=== PATIENT | male | born 1990 | race American Indian/Alaskan Native ===

== ENCOUNTER 2018-10-28 00:16 | Emergency (ER) | payer BC, OTHER ==
[2018-10-28 00:16] VITALS: BMI 23.6
[2018-10-28 00:28] VITALS: RESP 18
[2018-10-28 00:52] LABS: BASO # 0.03 K/mm3 (0.0-2.0); BASO % 0.3 % (0.0-3.0); EOS # 0.1 (0.0-0.7); EOS % 0.8 % (1.5-5.0); GRAN # 5.81 (1.4-6.5); GRAN % 51.9 % (50.0-68.0); HEMOGLOBIN 13.9 g/dL (14.0-18.0); LYMPH # 4.4 (1.2-3.4); LYMPH % 39.4 % (22.0-35.0); MEAN CELL VOLUME 92.1 fl (80.0-105.0); MEAN CORPUSCULAR HEMOGLOBIN 30.5 pg (25.0-35.0); MEAN CORPUSCULAR HGB CONC 33.2 g/dl (31.0-37.0); MEAN PLATELET VOLUME 10.8 fl (7.0-11.0); MONO # 0.9 (0.1-0.6); MONO % 7.6 % (1.0-6.0); RBC 4.55 10^6/uL (3.5-6.1); RED CELL DISTRIBUTION WIDTH 12.3 % (11.5-14.5); WHITE BLOOD COUNT 11.2 10^3/uL (4.5-11.0)
[2018-10-28 01:02] LABS: ALB/GLOB RATIO 1.4 (1.1-1.8); ALBUMIN 4.5 g/dL (3.0-4.8); ALT/SGPT 47 U/L (7-56); AST/SGOT 31 U/L (17-59); BLOOD UREA NITROGEN 26 mg/dL (7-21); CALCIUM 9.5 mg/dL (8.4-10.5); GFR NON-AFRICAN AMERICAN > 60
[2018-10-28 01:09] LABS: URINE BILIRUBIN NEGATIVE (NEGATIVE); URINE BLOOD TRACE-INTACT (NEGATIVE); URINE GLUCOSE (UA) NEGATIVE (NEGATIVE); URINE LEUKOCYTE ESTERASE NEGATIVE Leu/uL (NEGATIVE); URINE PROTEIN NEGATIVE mg/dL (<30 mg/dL); URINE UROBILINOGEN 0.2 E.U./dL (<1 E.U./dL)
[2018-10-28 01:12] LABS: ACETAMINOPHEN < 10.0 ug/ml (10.0-20.0); SALICYLATE < 1 mg/dL (2.0-20.0)
[2018-10-28 01:13] LABS: TROPONIN I < 0.01 ng/mL
[2018-10-28 01:16] VITALS: TEMP 98.1
[2018-10-28 01:18] LABS: URINE APPEARANCE CLEAR (CLEAR); URINE COLOR YELLOW (YELLOW)
[2018-10-28 01:24] LABS: URINE EPITHELIAL CELLS 0 - 2 /hpf (0-5); URINE RBC 0 - 2 /hpf (0-2); URINE WBC 0 - 2 /hpf (0-6)
--- NOTE | 2018-10-28 01:26 | ED PDOC ---
Arrival/HPI - General Historian: Patient - History of Present Illness Narrative History of Present Illness (Text): 10/28/18 01:21 28-year-old male with no past medical history presents today with a one-week history of intermittent chest pain. Patient describes a pinprick type sensation intermittently occurring to the chest mostly on the left side. He denies associated shortness of breath. Patient states he has been having occasional dizziness. He denies nausea vomiting diarrhea or constipation. No abdominal pain. He denies fevers or chills or URI symptoms. Patient is requesting to have a drug screen because he is not sure if someone is drugging him or if the voices that he is hearing in his head are real. He states the voices are not telling him to hurt himself. He denies suicidal or homicidal ideations. Patient denies back pain. Patient denies urinary symptoms. Time/Duration: 1 week Symptom Course: Intermittent Severity Level: Mild <Suzanne Burch - Last Filed: 10/28/18 01:53> <Blade Hill - Last Filed: 10/28/18 02:14> - General Chief Complaint: Chest Pain Time Seen by Provider: 10/28/18 00:17 Past Medical History - Provider Review Nursing Documentation Reviewed: Yes - Psychiatric Hx Substance Use: No <Suzanne Burch - Last Filed: 10/28/18 01:53> Family/Social History - Physician Review Nursing Documentation Reviewed: Yes Family/Social History: Unknown Family HX Smoking Status: Never Smoked Hx Alcohol Use: Yes Frequency of alcohol use: Socially Hx Substance Use: No <Suzanne Burch - Last Filed: 10/28/18 01:53> Allergies/Home Meds <Suzanne Burch - Last Filed: 10/28/18 01:53> <Blade Hill - Last Filed: 10/28/18 02:14> Allergies/Adverse Reactions: Allergies No Known Allergies Allergy (Verified 09/26/15 00:51) Home Medications: Home Meds Medication Instructions Recorded Confirmed No Known Home Med 09/26/15 10/28/18 Review of Systems - Review of Systems Constitutional: absent: Fatigue, Fevers ENT: absent: Sore Throat, Sinus Congestion Respiratory: absent: SOB, Cough Cardiovascular: Chest Pain. absent: Palpitations, Orthopnea Gastrointestinal: absent: Abdominal Pain, Constipation, Diarrhea, Nausea, Vomiting Genitourinary Male: absent: Dysuria, Frequency, Hematuria Musculoskeletal: absent: Arthralgias, Back Pain, Neck Pain Skin: absent: Rash, Pruritis Neurological: Dizziness. absent: Headache Psychiatric: Other (hearing voices). absent: Anxiety, Depression, Suicidal Ideation <MarcinSuzanne T - Last Filed: 10/28/18 01:53> Physical Exam Vital Signs Reviewed: Yes Vital Signs Temp Pulse Resp BP Pulse Ox 10/28/18 00:27 98.1 F 75 18 123/54 L 97 Temperature: Afebrile Blood Pressure: Normal Pulse: Regular Respiratory Rate: Normal Appearance: Positive for: Well-Appearing, Non-Toxic, Comfortable Pain Distress: None Mental Status: Positive for: Alert and Oriented X 3 - Systems Exam Head: Present: Atraumatic Pupils: Present: PERRL Extroacular Muscles: Present: EOMI Conjunctiva: Present: Normal Mouth: Present: Moist Mucous Membranes Pharnyx: Present: Normal Neck: Present: Normal Range of Motion Respiratory/Chest: Present: Clear to Auscultation, Good Air Exchange. No: Respiratory Distress, Accessory Muscle Use, Tender to Palpation Cardiovascular: Present: Regular Rate and Rhythm, Normal S1, S2. No: Murmurs, Tachycardic Abdomen: No: Tenderness, Distention, Rebound, Guarding Back: Present: Normal Inspection Upper Extremity: Present: Normal ROM Lower Extremity: Present: Normal ROM. No: CALF TENDERNESS Neurological: Present: GCS=15, Speech Normal Skin: Present: Warm, Dry, Normal Color. No: Rashes Psychiatric: Present: Alert, Oriented x 3 <Suzanne Burch - Last Filed: 10/28/18 01:53> Vital Signs Temp Pulse Resp BP Pulse Ox 10/28/18 00:27 98.1 F 75 18 123/54 L 97 <Blade Hill - Last Filed: 10/28/18 02:14> Medical Decision Making ED Course and Treatment: 10/28/18 01:24 Pt with 1 week of intermittent cp. Patient is nontoxic well-appearing in no distress vital signs are stable. cbc; wnl cmp; bun; 26 cr. 1.3 glucose; 64 pt given oj and apple sauce. trop: 0.01 dimer: <200 ekg; rhythm at 77 bpm normal axis normal intervals no ST elevations cxr: wnl Tylenol WNL Salicylate WNL Alcohol level WNL Urine drug screen wnl UA; wnl pt is medically cleared for PES evaluation Patient was seen and evaluated by PES screener: isabel Patient is cleared psychiatrically for discharge. all results discussed with patient in depth; advised f/u with pmd/[facility] and mental health center. Patient was advised to me to return if symptoms worsen persist or if new concerning symptoms develop Patient verbalizes understanding of discharge instructions and need for immediate followup. All aspects of this case were discussed the attending of record. Impression; chest pain follow up with the primary care physician within the next 2 days. follow up with the small wind energy installer within the next 2 days follow up with the mental health center within the next 2 days return immediately if symptoms worsen,persist or if new symptoms develop. Reassessment Condition: Re-examined, Improved - Lab Interpretations Lab Results: Troponin I < 0.01 ng/mL 10/28/18 00:32 Total Bilirubin 0.5 mg/dL (0.2-1.3) 10/28/18 00:32 AST 31 U/L (17-59) 10/28/18 00:32 ALT 47 U/L (7-56) 10/28/18 00:32 Alkaline Phosphatase 63 U/L (38-126) 10/28/18 00:32 Total Protein 7.9 g/dL (5.8-8.3) 10/28/18 00:32 Albumin 4.5 g/dL (3.0-4.8) 10/28/18 00:32 Globulin 3.3 gm/dL 10/28/18 00:32 Albumin/Globulin Ratio 1.4 (1.1-1.8) 10/28/18 00:32 Urine Color Yellow (YELLOW) 10/28/18 00:57 Urine Appearance Clear (CLEAR) 10/28/18 00:57 Urine pH 6.0 (4.7-8.0) 10/28/18 00:57 Ur Specific Lorraine 1.015 (1.005-1.035) 10/28/18 00:57 Urine Protein Negative mg/dL (<30 mg/dL) 10/28/18 00:57 Urine Glucose (UA) Negative mg/dL (NEGATIVE) 10/28/18 00:57 Urine Ketones Negative mg/dL (NEGATIVE) 10/28/18 00:57 Urine Blood Trace-intact (NEGATIVE) H 10/28/18 00:57 Urine Nitrate Negative (NEGATIVE) 10/28/18 00:57 Urine Bilirubin Negative (NEGATIVE) 10/28/18 00:57 Urine Urobilinogen 0.2 E.U./dL (<1 E.U./dL) 10/28/18 00:57 Ur Leukocyte Esterase Negative Deyvi/uL (NEGATIVE) 10/28/18 00:57 - RAD Interpretation Radiology Orders: 10/28/18 00:40 CHEST PORTABLE [RAD] Stat <Azoia,Suzanne T - Last Filed: 10/28/18 01:53> - Lab Interpretations Lab Results: D-Dimer, Quantitative < 200 ng/mlDDU (0-243) 10/28/18 00:32 Troponin I < 0.01 ng/mL 10/28/18 00:32 Total Bilirubin 0.5 mg/dL (0.2-1.3) 10/28/18 00:32 AST 31 U/L (17-59) 10/28/18 00:32 ALT 47 U/L (7-56) 10/28/18 00:32 Alkaline Phosphatase 63 U/L (38-126) 10/28/18 00:32 Total Protein 7.9 g/dL (5.8-8.3) 10/28/18 00:32 Albumin 4.5 g/dL (3.0-4.8) 10/28/18 00:32 Globulin 3.3 gm/dL 10/28/18 00:32 Albumin/Globulin Ratio 1.4 (1.1-1.8) 10/28/18 00:32 Urine Color Yellow (YELLOW) 10/28/18 00:57 Urine Appearance Clear (CLEAR) 10/28/18 00:57 Urine pH 6.0 (4.7-8.0) 10/28/18 00:57 Ur Specific Lorraine 1.015 (1.005-1.035) 10/28/18 00:57 Urine Protein Negative mg/dL (<30 mg/dL) 10/28/18 00:57 Urine Glucose (UA) Negative mg/dL (NEGATIVE) 10/28/18 00:57 Urine Ketones Negative mg/dL (NEGATIVE) 10/28/18 00:57 Urine Blood Trace-intact (NEGATIVE) H 10/28/18 00:57 Urine Nitrate Negative (NEGATIVE) 10/28/18 00:57 Urine Bilirubin Negative (NEGATIVE) 10/28/18 00:57 Urine Urobilinogen 0.2 E.U./dL (<1 E.U./dL) 10/28/18 00:57 Ur Leukocyte Esterase Negative Deyvi/uL (NEGATIVE) 10/28/18 00:57 Urine RBC 0 - 2 /hpf (0-2) 10/28/18 00:57 Urine WBC 0 - 2 /hpf (0-6) 10/28/18 00:57 Ur Epithelial Cells 0 - 2 /hpf (0-5) 10/28/18 00:57 Urine Bacteria None /hpf (NONE) 10/28/18 00:57 - RAD Interpretation Radiology Orders: 10/28/18 00:40 CHEST PORTABLE [RAD] Stat <Blade Hill - Last Filed: 10/28/18 02:14> - PA / TELEGRAPH REPEATER INSTALLER / Resident Statement / has reviewed & agrees with the documentation as recorded. <Blade Hill - Last Filed: 10/28/18 02:14> Disposition/Present on Arrival - Present on Arrival Any Indicators Present on Arrival: No History of DVT/PE: No History of Uncontrolled Diabetes: No Urinary Catheter: No History of Decub. Ulcer: No History Surgical Site Infection Following: None - Disposition Have Diagnosis and Disposition been Completed?: Yes Disposition Time: 01:26 Patient Plan: Discharge <Suzanne Burch - Last Filed: 10/28/18 01:53> <Blade Hill - Last Filed: 10/28/18 02:14> - Disposition Diagnosis: Chest pain Disposition: HOME/ ROUTINE Patient Problems: Current Active Problems Problem Status Onset Chest pain Acute Condition: GOOD Discharge Instructions (ExitCare): Chest Pain (ED) Additional Instructions: Follow up with the primary care physician within the next 2 days. follow up with the small wind energy installer within the next 2 days follow up with the mental health center within the next 2 days return immediately if symptoms worsen,persist or if new symptoms develop. Referrals: Corry Vaughan MD [Medical Doctor] - Follow up with primary [facility] [Outside] - Follow up with primary [facility] [Outside] - Follow up with primary Tong Friend MD [Staff Provider] - Follow up with primary Romeo Marquez MD [Staff Provider] - Follow up with primary Forms: [employer] (K[place]itian), WORK NOTE
[2018-10-28 01:46] LABS: BARBITURATES, UR NEGATIVE (NEGATIVE); BENZODIAZEPINES, UR NEGATIVE (NEGATIVE); OPIATES, UR NEGATIVE (NEGATIVE); PHENCYCLIDINE, UR NEGATIVE (NEGATIVE)
[2018-10-28 02:18] VITALS: BP 148/68; PULSE 79; O2SAT 99
--- NOTE | 2018-10-28 08:05 | RAD ---
Date of service: 10/28/2018 HISTORY: cp COMPARISON: 09/26/2015 FINDINGS: LUNGS: No active pulmonary disease. PLEURA: No significant pleural effusion identified, no pneumothorax apparent. CARDIOVASCULAR: No aortic atherosclerotic calcification present. Normal cardiac size. No pulmonary vascular congestion. OSSEOUS STRUCTURES: No significant abnormalities. VISUALIZED UPPER ABDOMEN: Normal. OTHER FINDINGS: None. IMPRESSION: No active disease.
--- NOTE | 2018-10-28 20:27 | CARD ---
APPROVED REPORT Date of service: 10/28/2018 EKG Measurement Heart [id number] <Conclusion> Normal sinus rhythm Normal ECG
== END 2018-10-28 02:13 | disposition home or self-care (01) ==
LOC: ED 00:16
DX: R07.9 Chest pain, unspecified (principal)
CPT/HCPCS: 71045; 80053; 81001; 82550; 83615; 83735; 84484; 85025; 85378; 90791; 93005; 99283; G0480